=== PATIENT | male | born 1985 | race Caucasian/White ===

== ENCOUNTER 2022-06-09 13:34 | Emergency (ER) | payer OTHER, SELFPAY ==
[2022-06-09 13:47] VITALS: BP 124/79; PULSE 119; RESP 20; TEMP 36.6; O2SAT 98; BMI 34.3
--- NOTE | 2022-06-09 14:51 | ED_ITS ---
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 He was working at home and cut it on a piece of sheet metal. He does not have complaints of numbness or loss of function. Unsure when his last tetanus was. History was obtained with the assistance of a railway head tender. Related Data Home Medications Medication Instructions Recorded Confirmed No Known Home Medications 06/09/22 06/09/22 Allergies Allergy/AdvReac Type Severity Reaction Status Date / Time No Known Drug Allergies Allergy Verified 06/09/22 13:46 PFSH PFS Social History Smoking Status: Current every day smoker What tobacco products do you use: cigars Do you use any of these nicotine containing products: None How often do you have a drink containing alcohol: never AUDIT-C Alcohol total score: 0 Non-prescribed substance use: denies use service: Yes ( service in [place]) Exam Narrative: Exam Narrative: Vital signs reviewed In general, an alert, well-appearing male. Extremities: Examination of the left hand reveals a 4 cm laceration across the left palm which extends just into the fatty tissue but not to the level of the muscle or tendons. Distal CMS is normal, full function noted in the fingers. Skin: Warm dry well perfused. Const: Vital Signs, click to edit/add: Vital Signs - 24 hr 06/09/22 13:47 Temperature 97.8 F Pulse Rate [Right Pulse Oximeter] 119 H Respiratory Rate 20 Blood Pressure [Ri ght Upper Arm] 124/79 Pulse Oximetry 98 Oxygen Delivery Me thod Room Air Documenting provider has reviewed patient's vital signs: yes Course Course Hospital Course: Procedure note: The wound was anesthetized using lidocaine with epinephrine. Explored, no evidence of injury to deeper structures and no evidence of foreign body. It was cleaned with normal saline. I closed the laceration using 5 0 nylon. A total of 8 simple interrupted superficial sutures were placed. He tolerated this well without immediate complication. A dressing was applied by the maintenance department technician. Recommend suture removal in about 1 week. Routine wound care, return for signs infection. Vital Signs Vital signs: Initial Vital Signs Temperature 97.8 F 06/09/22 13:47 Temperature Source Temporal Artery Scan 06/09/22 13:47 Pulse Rate 119 H 06/09/22 13:47 Respiratory Rate 20 06/09/22 13:47 Blood Pressure 124/79 06/09/22 13:47 Blood Pressure Mean 94 06/09/22 13:47 Pulse Oximetry 98 06/09/22 13:47 Oxygen Delivery Method 06/09/22 13:47 Vital Signs Temperature 97.8 F 06/09/22 13:47 Pulse Rate 119 H 06/09/22 13:47 Respiratory Rate 20 06/09/22 13:47 Blood Pressure 124/79 06/09/22 13:47 Pulse Oximetry 98 06/09/22 13:47 Oxygen Delivery Method 06/09/22 13:47 Temperature 97.8 F 06/09/22 13:47 Pulse Rate 119 H 06/09/22 13:47 Respiratory Rate 20 06/09/22 13:47 Blood Pressure 124/79 06/09/22 13:47 Pulse Oximetry 98 06/09/22 13:47 Oxygen Delivery Method 06/09/22 13:47 Discharge Plan Discharge Clinical Impression: Hand laceration Patient Disposition: Home, Self-Care Condition: Improved Instructions: Laceration (DC) Additional Instructions: Routine wound care. Suture removal in about a week in clinic. Return for signs of infection. Prescriptions: No Action No Known Home Medications Follow Up/Referrals: Provider,Not a Local [Primary Care Provider] - Stand Alone Forms: MyHealth Info Instructions
== END 2022-06-09 14:39 | disposition home or self-care (01) ==
PROVIDERS: Emergency Provider Emergency Medicine
DX: S61.412A Laceration without foreign body of left hand, initial encounter (principal); W26.8XXA Contact with other sharp object(s), not elsewhere classified, initial encounter
CPT/HCPCS: 12002; 90471; 99283